=== PATIENT | female | born 1980 | race Caucasian/White ===

== ENCOUNTER 2022-12-31 07:53 | Day surgery (SDC) | payer MEDICAID ==
[2022-12-31] MEDS ORDERED: Cyanocobalamin (Vitamin B12) 1,000 MCG/ML SDV IM ONE (09:00)
[2022-12-31] MEDS ORDERED: Lactated Ringers 1,000 ML IV ONE (09:00)
[2022-12-31] MEDS ORDERED: fentaNYL 50 MCG/ML SDV ONE (09:41)
[2022-12-31] MEDS ORDERED: Midazolam 1 MG/ML 2 ML SDV ONE (09:41)
[2022-12-31] MEDS ORDERED: Propofol 200 MG/20 ML SDV ONE (09:41)
[2022-12-31] MEDS ORDERED: MVI, Adult with Vitamin K 10 ML, Thiamine 200 MG, Zinc/Copper/Manganese/Selenium 1 ML i... IV ONE ×4 (10:00)
== END 2022-12-31 11:53 | disposition home or self-care (01) ==
LOC: JP.SDS 07:53
PROVIDERS: ATTEND Surgery
DX: K29.80 Duodenitis without bleeding (principal); E66.9 Obesity, unspecified; Z68.41 Body mass index [BMI] 40.0-44.9, adult
CPT/HCPCS: 88305; 88342; J2250; J2704; J3010; J3411; J3420; J3490; J7120